=== PATIENT | female | born 1970 | race Caucasian/White ===

== ENCOUNTER 2017-03-11 18:50 | Inpatient (IN) | payer OTHER ==
--- NOTE | 2017-03-11 19:04 | EDPHY ---
H & P Stated Complaint: FACIAL INFECTION/REDNESS SWELLING/FEVER Time Seen by Provider: 03/11/17 19:03 HPI/ROS: HPI: This is a 46-year-old female who presents with Chief Complaint: FACIAL INFECTION/REDNESS SWELLING/FEVER Location: nose/eyes Quality: Redness Duration: Since this morning Signs and Symptoms: + low-grade fever, no chills, no nausea, no vomiting, no visual changes, no rhinorrhea, no discharge, + erythema Timing: Rapidly worsened Severity: Moderate Context: Patient reports that she had a pimple on the right side of her nose that she noticed on Wednesday. She expressed with purulent discharge. She woke up this morning with the bridge of her nose spreading to hit her cheeks of erythema/warmth. She went to the urgent care around noon and was given Keflex and topical Bactroban. She has taken 1 Keflex dose and apply Bactroban x1. She reports that now she has both upper eyelids with redness and swelling. She denies any visual changes/proptosis/trismus/paresthesias. She believes that she may have a MRSA infection. Currently on menses. Denies any dental cavities/ rhinorrhea/sinus pressure/nasal congestion. In [place] for work. Originally from [place]. Modifying Factors: See above Comment: ROS: see HPI Constitutional: + fever, no chills, no weight loss Eyes: No blurred vision Respiratory: No shortness of breath, no cough Cardiovascular: No chest pain Gastrointestinal: No nausea, no vomiting, no diarrhea Genitourinary: No dysuria Extremities: No myalgias Neurologic: No weakness, no numbness Skin: No rashes Hematologic: No bruising, no bleeding MEDICAL/SURGICAL/SOCIAL HISTORY: Medical history: Generally healthy. Does not take any regular medications. Surgical history: Appendectomy. Social history: . Lives in [place]. CONSTITUTIONAL: Extremely pleasant adult white female, awake and alert, no obvious distress HEENT: Atraumatic and normocephalic, PERRL, EOMI. Tympanic membranes clear. Oropharynx clear, no exudate and moist pink mucosa. Airway patent. No lymphadenopathy. No meningismus. Cardiovascular: Normal S1/S2, tachycardia, regular rhythm, without murmur rub or gallop. PULMONARY/CHEST: Symmetrical and nontender. Clear to auscultation bilaterally. Good air movement. No accessory muscle usage. ABDOMEN: Soft, nondistended, nontender, no rebound, no guarding, no peritoneal signs, no masses or organomegaly. No CVAT. EXTREMITIES: 2/2 pulses, strength 5/5, no deformities, no clubbing, no cyanosis or edema. NEUROLOGICAL: no focal neuro deficits. GCS 15. SKIN: Moderate erythema/edema noted to the bridge of her nose, nasal fold, and upper eyelids. Small pinpoint excoriated area noted on right side of nasal bridge-no fluctuance. No crepitus. Good capillary refill. Source: Patient Exam Limitations: No limitations - Personal History LMP (Females 10-55): Now Current Tetanus/Diphtheria Vaccine: Unsure - Medical/Surgical History Hx Asthma: No Hx Chronic Respiratory Disease: No Hx Diabetes: No Hx Cardiac Disease: No Hx Renal Disease: No Hx Cirrhosis: No Hx Alcoholism: No Hx HIV/AIDS: No Hx Splenectomy or Spleen Trauma: No Other PMH: APPY - Social History Smoking Status: Never smoked Constitutional: Initial Vital Signs Temperature (C) 37 C 03/11/17 18:53 Heart Rate 128 H 03/11/17 18:53 Respiratory Rate 17 03/11/17 18:53 Blood Pressure 134/97 H 03/11/17 18:53 O2 Sat (%) 92 03/11/17 18:53 O2 Delivery Mode Room Air Allergies/Adverse Reactions: Penicillins Allergy (Verified 03/11/17 18:52) Home Medications: Medication Instructions Recorded Keflex 03/11/17 Mupirocin 03/11/17 Medical Decision Making ED Course/Re-evaluation: Labs, blood cultures, IV fluids, IV medications ordered Vital signs reviewed upon arrival in show heart rate of 128. Given 1 L normal saline, IV Rocephin and IV vancomycin. Labs reviewed and show 19,000 white count, ESR 43 2000: ED decision to consult for admission diffuse facial cellulitis without abscess bilateral periorbital cellulitis. Spoke with hospitalist, Dr. Nicholas, who kindly agrees to admit patient and provide further care. This patient was seen under the supervision of my secondary supervising physician. I evaluated care for this patient independently. Discussed this patient with Dr. Christensen who did not see the patient. Patient's presentation, labs/imaging, treatment and plan of care were discussed with secondary supervising physician. Differential Diagnosis: Differential diagnosis includes but is not limited to facial cellulitis, periorbital cellulitis, MRSA infection. - Data Points Laboratory Results: Laboratory Results 03/11/17 19:20 03/11/17 19:20 03/11/17 03/11/17 03/11/17 19:20 19:20 19:20 WBC 19.84 10^3/uL H 10^3/uL (3.80-9.50) RBC 5.16 10^6/uL 10^6/uL (4.18-5.33) Hgb 13.8 g/dL g/dL (12.6-16.3) Hct 41.3 % % (38.0-47.0) MCV 80.0 fL L fL (81.5-99.8) MCH 26.7 pg L pg (27.9-34.1) MCHC 33.4 g/dL g/dL (32.4-36.7) RDW 13.2 % % (11.5-15.2) Plt Count 410 10^3/uL H 10^3/uL (150-400) MPV 9.5 fL fL (8.7-11.7) Neut % (Auto) 88.2 % H % (39.3-74.2) Lymph % (Auto) 5.1 % L % (15.0-45.0) Grand % (Auto) 5.4 % % (4.5-13.0) Eos % (Auto) 0.4 % L % (0.6-7.6) Baso % (Auto) 0.2 % L % (0.3-1.7) Nucleat RBC Rel Count 0.0 % % (0.0-0.2) Absolute Neuts (auto) 17.50 10^3/uL H 10^3/uL (1.70-6.50) Absolute Lymphs (auto) 1.02 10^3/uL 10^3/uL (1.00-3.00) Absolute Monos (auto) 1.07 10^3/uL H 10^3/uL (0.30-0.80) Absolute Eos (auto) 0.07 10^3/uL 10^3/uL (0.03-0.40) Absolute Basos (auto) 0.04 10^3/uL 10^3/uL (0.02-0.10) Absolute Nucleated RBC 0.00 10^3/uL 10^3/uL (0-0.01) Immature Gran % 0.7 % % (0.0-1.1) Immature Gran # 0.14 10^3/uL H 10^3/uL (0.00-0.10) ESR 43 MM/HR H MM/HR (0-20) VBG Lactic Acid 1.6 mmol/L mmol/L (0.7-2.1) Sodium 137 mEq/L mEq/L (134-144) Potassium 3.9 mEq/L mEq/L (3.5-5.2) Chloride 102 mEq/L mEq/L (97-110) Carbon Dioxide 22 mEq/l mEq/l (22-31) Anion Gap 13 mEq/L mEq/L (8-16) BUN 15 mg/dL mg/dL (7-23) Creatinine 0.6 mg/dL mg/dL (0.6-1.0) Estimated GFR > 60 Glucose 124 mg/dL H mg/dL (70-100) Calcium 9.1 mg/dL mg/dL (8.5-10.4) C-Reactive Protein Pending Medications Given: Vancomycin/Sodium Chloride (Vancomycin 1 Gm (Premix)) 250 mls @ 250 mls/hr IV EDNOW ONE PRN Reason: Protocol Stop: 03/11/17 20:19 Last Admin: 03/11/17 19:49 Dose: 250 mls Discontinued Medications Sodium Chloride (Ns) 1,000 mls @ 0 mls/hr IV ONCE ONE; Wide Open PRN Reason: Protocol Stop: 03/11/17 19:21 Last Admin: 03/11/17 19:42 Dose: 1,000 mls Departure - Departure Disposition: [facility] Clinical Impression: Diffuse cellulitis of face, Cellulitis of periorbital region of both eyes Condition: Fair
[2017-03-11] MEDS ORDERED: VANCOMYCIN HCL/NORMAL SALINE 250 ML IV ONE (19:20)
[2017-03-11] MEDS ORDERED: NS 1,000 ML IV ONE (19:20)
[2017-03-11 19:49] LABS: PLATELET COUNT 410 10^3/uL (150-400)
[2017-03-11] MEDS ORDERED: OXYCODONE/APAP 5/325 TAB PO PRN (21:33)
[2017-03-11] MEDS ORDERED: ONDANSETRON 4 MG/2 ML VIAL IVP PRN (21:33)
[2017-03-11] MEDS ORDERED: ONDANSETRON DISINTEGRATING 4 MG TAB PO PRN (21:33)
[2017-03-11] MEDS ORDERED: ACETAMINOPHEN 325 MG TAB PO PRN (21:33)
[2017-03-11] MEDS: NS 1,000 ML IV SCH (22:10)
[2017-03-11] MEDS: ceFAZolin 2 GM/DEXTROSE 100 ML IV SCH (22:11)
--- NOTE | 2017-03-11 22:15 | GHP ---
[f rep st] HISTORY AND PHYSICAL DATE OF ADMISSION: 03/11/2017 CHIEF COMPLAINT: Facial cellulitis. HISTORY OF PRESENT ILLNESS: This is a 46-year-old female, who has no significant past medical histor y. She is working and here from [place]. She was diagnosed with the flu about a week ago. She s ays she was blowing her nose and noticed a pimple on her nose. She was scratching it somewhat yester day, but this morning she developed swelling and redness. It started in her nose and has now spread to her eyes and lower face. She has had no fevers or chills. She went to an urgent care this [facility] and was given Keflex. She took a dose, but still had worsening redness over the day and came to [facility] emergency department. Here, she has received a dose of ceftriaxone and is getting vancomycin now, but after the dose of ceftriaxone, she says that she is feeling a lot better, with decrease inflammat ion on her face. REVIEW OF SYSTEMS: A 10-point review of systems obtained and other than stated, it was negative. PAST MEDICAL HISTORY: None. MEDICATIONS: Tamiflu. SOCIAL HISTORY: No smoking. Occasional alcohol. 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 FAMILY HISTORY: Reviewed and noncontributory. PHYSICAL EXAMINATION: VITAL SIGNS: Afebrile. Blood pressure is 170/102, heart rate 100, and oxygen saturation is 98% on room air. GENERAL: The patient is well developed and in no apparent distress. HEENT: Nonicteric sclerae. There is erythema extending to her eyes, cheek, and nose, with a small scab where the previous pimple was. NECK: Supple. No thyromegaly. LUNGS: Good effort. Clear to auscultation bilaterally. CARDIOVASCULAR: Regular rate and rhythm. No murmurs, rubs, or gallops. ABDOMEN: Positive bowel sounds. Soft, nontender, nondistended. No hepatosplenomegaly. EXTREMITIE S: No clubbing, cyanosis, or edema. SKIN: Without rash and intact. NEUROLOGIC: Alert and oriente d x3. Moving all 4 extremities equally. PSYCH: Normal mood and affect. LABORATORY DATA: White blood cell count is elevated at 19. Other labs are normal. Lactate is libia l. ASSESSMENT AND PLAN: This is a 46-year-old female, presenting with facial cellulitis/erysipelas. 1. Cellulitis/erysipelas. The patient did receive a significant amount of improvement with the ceft riaxone, even before the vancomycin. I am going to treat her with higher-dose Ancef, as this is prob ably strep-related. I did not want to bartolo her face with a marker. Thus, we did take a picture of h er face with her phone for her physician to monitor and compare for improvement. 2. Recent influenza. She will continue with the Tamiflu. /[id number]/MODL
[2017-03-11] MEDS: IBUPROFEN 200 MG TAB PO PRN (22:16)
[2017-03-12 05:15] LABS: PLATELET COUNT 335 10^3/uL (150-400)
[2017-03-12] MEDS: ceFAZolin 2 GM/DEXTROSE 100 ML IV SCH ×3 (05:21→22:06)
[2017-03-12] MEDS: NS 1,000 ML IV SCH (05:21)
--- NOTE | 2017-03-12 08:00 | PDMN ---
Medical Necessity Medical necessity: Pt meets INPT criteria per MD and [facility] M-70 Celllitis ( rapidly spreading facial cellulitis/erysipelas with swelling and redness of both upper eyelids, nose, lower face; requiring IVABx; hx recent influenza).
[2017-03-12] MEDS: ENOXAPARIN 40 MG/0.4 ML SYR SC SCH (08:53)
[2017-03-12] MEDS ORDERED: OSELTAMIVIR PHOSPHATE 75 MG CAP PO SCH (09:00)
--- NOTE | 2017-03-12 10:21 | ASMTCMCOM ---
CM Note CM Note Notes: Chart reviewed. Patient 46 year old female lives independent. Likely no needs at discharge. CM available should needs arise. Date Signed: 03/12/2017 10:21 AM Electronically Signed By:Lina Winkler RN
[2017-03-12] MEDS ORDERED: PROTOCOL POTASSIUM 1 DOSE MISC PRN (16:07)
--- NOTE | 2017-03-12 16:11 | HOSPPROG ---
Hospitalist Progress Note Assessment/Plan: #Facial Cellulitis, Erisipelas #HTN #Tachycardia #recent influenza, s/p Tamiflu Plan: Improving cont Ancef at current dose monitor BP trial off IVF trend CRP f/u blood culture Lovenox for DVT proph Subjective: Feeling better, Face looks better. AFebrile. NO CP or SOB Objective: Vital Signs Temp Pulse Resp BP Pulse Ox 36.8 C 112 H 16 152/90 H 93 03/12/17 12:00 03/12/17 12:00 03/12/17 12:00 03/12/17 12:00 03/12/17 12:00 Laboratory Results 03/12/17 11:00 03/12/17 05:06 03/11/17 03/12/17 03/13/17 05:59 05:59 05:59 Intake Total 3300 Output Total 900 Balance 2400 - Physical Exam Constitutional: no apparent distress, appears nourished Eyes: PERRL, EOMI Ears, Nose, Mouth, Throat: moist mucous membranes, hearing normal, other ( bilateral periorbital and facial swelling with erythema. no ulceration. ) Cardiovascular: regular rate and rhythym, No edema Respiratory: no respiratory distress, no rales or rhonchi, clear to auscultation Gastrointestinal: normoactive bowel sounds, soft, non-tender abdomen Musculoskeletal: No generalized weakness Neurologic: AAOx3 Psychiatric: interacting appropriately, not anxious, not encephalopathic Lymph, Heme, Immunologic: lymphadenopathy, No no cervical LAD, No petechiae ICD10 Worksheet Patient Problems: Problems Problem Status Onset Cellulitis of periorbital region of both eyes Acute Diffuse cellulitis of face Acute
[2017-03-12] MEDS: IBUPROFEN 200 MG TAB PO PRN (16:51)
[2017-03-12] MEDS ORDERED: POTASSIUM CL 10 MEQ TAB PO ONE ×2 (16:55→19:09)
[2017-03-13 04:52] LABS: PLATELET COUNT 376 10^3/uL (150-400)
[2017-03-13] MEDS: ceFAZolin 2 GM/DEXTROSE 100 ML IV SCH ×3 (05:55→21:56)
[2017-03-13] MEDS: ENOXAPARIN 40 MG/0.4 ML SYR SC SCH (10:24)
[2017-03-13] MEDS ORDERED: POTASSIUM CL 10 MEQ TAB PO ONE ×2 (11:02→19:16)
--- NOTE | 2017-03-13 13:42 | HOSPPROG ---
Hospitalist Progress Note Assessment/Plan: #Facial Cellulitis, Erisipelas #HTN, better #Tachycardia #recent influenza, s/p Tamiflu Plan: Improving, much less facial swelling and erythyma. feels better. Still with Leukocytosis and elevated CRP cont Ancef at current dose BP stable cont off IVF trend CRP f/u blood culture, NGTF Lovenox for DVT proph Subjective: feels better. redness is improving. No CP or SOB. No difficutly swallowing. CRP is elevated. Leukocytosis persists. Afebrile. Objective: Vital Signs Temp Pulse Resp BP Pulse Ox 36.9 C 98 16 139/86 H 91 L 03/13/17 11:37 03/13/17 11:37 03/13/17 11:37 03/13/17 11:37 03/13/17 11:37 Laboratory Results 03/13/17 04:40 03/13/17 04:40 03/12/17 03/13/17 03/14/17 05:59 05:59 05:59 Intake Total 3300 1930 Output Total 900 300 Balance 2400 1630 - Physical Exam Constitutional: no apparent distress, appears nourished Eyes: PERRL, EOMI Ears, Nose, Mouth, Throat: moist mucous membranes, hearing normal, other ( bilateral facial and periorbital swelling and erythema, improving overall) Cardiovascular: regular rate and rhythym, no murmur, rub, or gallop Respiratory: no respiratory distress, no rales or rhonchi Gastrointestinal: normoactive bowel sounds, soft, non-tender abdomen Skin: warm Neurologic: AAOx3 Psychiatric: interacting appropriately, not anxious, not encephalopathic ICD10 Worksheet Patient Problems: Problems Problem Status Onset Cellulitis of periorbital region of both eyes Acute Diffuse cellulitis of face Acute
[2017-03-14 04:52] LABS: PLATELET COUNT 360 10^3/uL (150-400)
[2017-03-14] MEDS: ceFAZolin 2 GM/DEXTROSE 100 ML IV SCH ×3 (05:34→21:59)
[2017-03-14] MEDS: ENOXAPARIN 40 MG/0.4 ML SYR SC SCH (08:53)
[2017-03-14] MEDS: IBUPROFEN 200 MG TAB PO PRN (14:34)
--- NOTE | 2017-03-14 15:06 | HOSPPROG ---
Hospitalist Progress Note Assessment/Plan: #Facial Cellulitis, Erisipelas #HTN, better #Tachycardia #recent influenza, s/p Tamiflu Plan: Improving, much less facial swelling and erythyma. feels better. Leukocytosis improving. Repeat labs tomorrow including CRP cont Ancef at current dose BP stable cont off IVF trend CRP f/u blood culture, NGTF Lovenox for DVT proph Dispo: consider d/c tomorrow if clinically cont to improve Subjective: doing better. No CP or SOB. Facial swelling is better. Erythema is better. Objective: Vital Signs Temp Pulse Resp BP Pulse Ox 36.9 C 93 16 154/88 H 92 03/14/17 07:29 03/14/17 07:29 03/14/17 07:29 03/14/17 07:29 03/14/17 07:29 Laboratory Results 03/14/17 04:42 03/14/17 04:42 03/13/17 03/14/17 03/15/17 05:59 05:59 05:59 Intake Total 1930 1800 Output Total 300 2 Balance 1630 1798 - Physical Exam Constitutional: no apparent distress Eyes: PERRL Ears, Nose, Mouth, Throat: moist mucous membranes, hearing normal, other ( bilateral orbital swelling with erythema) Cardiovascular: regular rate and rhythym, No edema Respiratory: no respiratory distress, no rales or rhonchi Gastrointestinal: normoactive bowel sounds, soft, non-tender abdomen Skin: warm Neurologic: AAOx3 Psychiatric: interacting appropriately, not anxious, not encephalopathic ICD10 Worksheet Patient Problems: Problems Problem Status Onset Cellulitis of periorbital region of both eyes Acute Diffuse cellulitis of face Acute
[2017-03-15] MEDS: ceFAZolin 2 GM/DEXTROSE 100 ML IV SCH (05:30)
[2017-03-15 05:38] LABS: PLATELET COUNT 480 10^3/uL (150-400)
[2017-03-15 07:50] VITALS: BP 152/99; PULSE 91; RESP 16; TEMP 97.7; O2SAT 92
[2017-03-15] MEDS: ENOXAPARIN 40 MG/0.4 ML SYR SC SCH (09:30)
--- NOTE | 2017-03-15 10:21 | GDS ---
[f rep st] DISCHARGE SUMMARY SERVICE: [facility] Hospitalists. CONSULTATIONS: None. PROCEDURES: None. HISTORY AND PHYSICAL: Please see previously dictated note by Dr. Nicholas ADMISSION DIAGNOSES: 1. Facial cellulitis/erysipelas. 2. Recent influenza. DISCHARGE DIAGNOSES: 1. Facial cellulitis/erysipelas. 2. Recent influenza. 3. Anemia. HOSPITAL SUMMARY: 1. Facial cellulitis/erysipelas. She came into the emergency department because of significantly wo rsening redness and swelling in her face. She had been seen by [facility] an d had been placed on oral cephalexin. However, came into the emergency department because of worseni ng symptoms and was admitted for IV therapy. She was started on IV Ancef and, over the course of her stay, erythema and swelling essentially resolved. On the day of discharge, she does not have any vi sible erythema, the skin is slightly dry and sloughing, but there does not appear to be any open skin lesions. She is otherwise feeling well and was eager for discharge so that she could return to [facility] (recently moved to [place], [place]). She missed her flight home yesterday and a note was provided for her by Dr. Bermudez at [facility] and also Dr. Gutierres. I have ins tructed her to contact the hospitalist office if further documentation is needed. She has been instr ucted to restart cephalexin, but should take it every 6 hours. She does not have a primary care prov ider in [place] and I recommended that she see one immediately for a hospital followup and also to recheck slight anemia. If at any time she has return of symptoms, fever, or other concerns, she kishan uld seek local emergency care. 2. Recent influenza. She is status post Tamiflu treatment. She did not have any respiratory sympto ms or hypoxia throughout her stay. 3. Anemia. She had a hematocrit of 36.9 on discharge. It was normal at 41.3 at admission. Suspect that this is dilutional and because of recent blood draws and also she was on her menses throughout her stay. Recommend that she get a repeat CBC with her new primary care provider. DISCHARGE INSTRUCTIONS: She should follow up with a new primary care provider within the next few da ys. She has a repeat CBC. She should return immediately for re-evaluation if has any recurrent symp toms or other concerns. DISCHARGE MEDICATIONS: Cephalexin 500 mg 1 tablet every 6 hours for 5 days. She has been asked to s top Bactroban ointment and any of her vitamins or supplements until her antibiotic doses are finished . /[id number]/MODL
--- NOTE | 2017-03-15 10:36 | ASMTCMCOM ---
CM Note CM Note Notes: Patient medically cleared for dc. Home independent. No CM needs identified. Date Signed: 03/15/2017 10:36 AM Electronically Signed By:Lina Winkler RN
== END 2017-03-15 13:08 | disposition home or self-care (01) | DRG 603 ==
LOC: OBSVTOIN 20:11 → F3N 20:56
PROVIDERS: ADMIT Internal Medicine; ATTEND Family Medicine
DX: L03.211 Cellulitis of face (principal); L03.213 Periorbital cellulitis; A46 Erysipelas; J11.1 Influenza due to unidentified influenza virus with other respiratory manifestations; D64.9 Anemia, unspecified; I10 Essential (primary) hypertension; R00.0 Tachycardia, unspecified; Z88.0 Allergy status to penicillin
CPT/HCPCS: 96365; 96366; J0690; J0696; J1650; J3370